=== PATIENT | female | born 1995 | race African-American/Black ===

== ENCOUNTER 2020-11-02 19:17 | Emergency (ER) | payer OTHER ==
[2020-11-02 19:25] VITALS: BP 126/68; PULSE 89; TEMP 98.3; BMI 33.5
[2020-11-02] MEDS ORDERED: KETOROLAC TROMETHAMINE 60 MG/2 ML VIAL IM ONE (20:39)
[2020-11-02] MEDS ORDERED: KETOROLAC TROMETHAMINE 30 MG/1 ML VIAL ONE (20:42)
== END 2020-11-02 23:13 | disposition home or self-care (01) ==
LOC: JERFT 19:17 → JER 19:17 → JERFT 23:13
PROC: 3E0233Z Introduction of Anti-inflammatory into Muscle, Percutaneous Approach (ICD-10-PCS; principal; 2020-11-02)
DX: M54.6 Pain in thoracic spine (principal); M25.512 Pain in left shoulder
CPT/HCPCS: 71046-TC-FY; 72070-TC-FY; 73030-TC-LT-FY; 93005; 93010; 99284-25